=== PATIENT | female | born 1970 | race Caucasian/White ===

== ENCOUNTER 2019-04-08 17:59 | Emergency (ER) | payer OTHER ==
[~2019-04-08] VITALS: Ht 157.5 cm; Wt 59.0 kg
[~2019-04-08 17:59] MED LIST: DARVOCET-N 1001 EACH PO; HYDROCODON-ACE1 EAC7 PO; KEFLEX500 MG PO; NAPROSYN500 MG PO; NOHOMEMEDICATIONS; PREDNISONE 20 M20 M1 PO; VENTOLIN HFA 1818 GM INH; ZPAK PO
[2019-04-08 18:39] LABS: URINE BILIRUBIN NEGATIVE (Negative); URINE BLOOD 1+ (Negative); URINE CLARITY CLEAR; URINE COLOR YELLOW; URINE GLUCOSE-RANDOM NEGATIVE (Negative); URINE KETONES NEGATIVE (Negative); URINE LEUKOCYTES-REFLEX TRACE (Negative); URINE NITRITE-REFLEX NEGATIVE (Negative); URINE PROTEIN NEGATIVE (Negative); URINE SPECIFIC GRAVITY 1.025 (1.005-1.030); URINE UROBILINOGEN 0.2 E.U./dl (0.2-1.0)
[2019-04-08 18:50] LABS: MUCUS None Seen strn/LPF (None Seen); SQUAMOUS >10 Many /LPF (0-3)
[2019-04-08 18:52] LABS: BACTERIA-REFLEX 1-9 Few /HPF (None Seen); CASTS None Seen /LPF (None Seen); CRYSTALS None Seen /LPF (None Seen); URINE RBC 0-2 Rare /HPF (0-2); URINE WBC-REFLEX 6-15 Few /HPF (0-5)
[2019-04-08] MEDS ORDERED: KEFLEX500 M1 PO (19:08)
[2019-04-08] MEDS ORDERED: SILALITE 0.1%1 EACH TOP (19:08)
[2019-04-08 19:20] VITALS: BP 122/88
--- NOTE | 2019-04-09 13:00 | EKG ---
[place] [address] ELECTROCARDIOGRAM REPORT Name: LINDA FRANKLIN Room: [facility]#: [id number] Admission: 04/08/19 Attend Phys: Discharge: 04/08/19 Date of : 68 Report #: [id number] THIS REPORT FOR: //name// [facility] ED Test Date: 2019-04-08 Test Time: 18:08:42 Pat Name: LINDA FRANKLIN Department: Room: Gender: F Rn Field Case Manager: : [id number] Requested By: Jaclyn Gold Order Number: [id number] Jean-Pierre MD: Oscar Abraham Measurements Intervals [place] Rate: 87 P: 74 [place]: 122 QRS: 35 QRSD: 90 T: 21 QT: 382 QTc: 460 Interpretive Statements Sinus rhythm Probable left atrial enlargement Compared to ECG 08/14/2015 13:08:44 Right ventricular hypertrophy no longer present Electronically Signed On 04-09-2019 12:59:31 CASER UP by Oscar Abraham [email or web address] <ELECTRONICALLY SIGNED> By: Oscar Abraham MD, [facility] 04/09/19 1259 1808 07 Oscar Abraham MD, FACC /EPI
== END 2019-04-08 19:21 ==
LOC: M.ERS 17:59
PROVIDERS: Emergency Medicine
DX: N39.0 Urinary tract infection, site not specified (principal); L30.9 Dermatitis, unspecified; F41.9 Anxiety disorder, unspecified; I10 Essential (primary) hypertension; F17.200 Nicotine dependence, unspecified, uncomplicated; Z88.5 Allergy status to narcotic agent